=== PATIENT | male | born 1930 | race Caucasian/White ===

== ENCOUNTER 2016-05-14 15:35 | Emergency (ER) | payer MEDICARE, OTHER ==
--- NOTE | 2016-05-14 16:25 | ER Document Report ---
ED Medical Screen (RME) - General Chief Complaint: Dizziness Stated Complaint: SYNCOPE Mode of Arrival: Ambulatory Information source: Patient Notes: 86-year-old male presents to the emergency department complaining of increased dizziness over the last 2 days. Also reports has had multiple falls over the last 2 months striking his head on several of the falls. Denies chest pain or shortness of breath I have greeted and performed a rapid initial assessment of this patient. A comprehensive ED assessment and evaluation of the patient, analysis of test results and completion of the medical decision making process will be conducted by additional ED providers. TRAVEL OUTSIDE OF THE [place] IN LAST 30 DAYS: No - Related Data Allergies/Adverse Reactions: aspirin Allergy (Verified 05/14/16 16:15) Penicillins Allergy (Verified 05/14/16 16:15) Tetanus Vaccines and Toxoid [Tetanus Vaccines & Toxoid] Allergy (Verified 16:15) Past Medical History - Social History Chew tobacco use (# tins/day): No Frequency of alcohol use: None Drug Abuse: None Endocrine Medical History: Reports: Hx Diabetes Mellitus Type 2 Renal/ Medical History: Denies: Hx Peritoneal Dialysis Past Surgical History: Reports: Hx Orthopedic Surgery - multiple back - Immunizations Hx Diphtheria, Pertussis, Tetanus Vaccination: - pt unable to receive Physical Exam - Vital signs Vitals: Temp Pulse Resp BP Pulse Ox 98.1 F 68 16 130/53 H 100 05/14/16 16:11 05/14/16 16:11 05/14/16 16:11 05/14/16 16:11 05/14/16 16:11 - General General appearance: Alert In distress: None - Respiratory Respiratory status: No respiratory distress - Neurological Neuro grossly intact: Yes Cognition: Normal Orientation: AAOx4 Celina Coma Scale Eye Opening: Spontaneous Celina Coma Scale Verbal: Oriented Arturo Coma Scale Motor: Obeys Commands Arturo Coma Scale Total: 15 Course - Vital Signs Vital signs: Temp Pulse Resp BP Pulse Ox 98.1 F 68 16 130/53 H 100 05/14/16 16:11 05/14/16 16:11 05/14/16 16:11 05/14/16 16:11 05/14/16 16:11
[2016-05-14 17:49] LABS: ABSOLUTE EOSINOPHILS # (AUTO) 0.3 10^3/uL (0.0-0.6); ABSOLUTE LYMPHOCYTES (AUTO) 1.1 10^3/uL (0.5-4.7); ABSOLUTE MONOCYTES (AUTO) 0.7 10^3/uL (0.1-1.4); ABSOLUTE NEUT (AUTO) 4.8 10^3/uL (1.7-8.2); BASOPHILS % (AUTO) 0.4 % (0-2); EOSINOPHILS % (AUTO) 4.5 % (0-6); HEMATOCRIT 38.7 % (37.9-51.0); HEMOGLOBIN 13.1 g/dL (13.5-17.0); HGB HCT DIFFERENCE 0.6; LYMPHOCYTES % (AUTO) 15.9 % (13-45); MEAN CORPUSCULAR HEMOGLOBIN 31.4 pg (27.0-33.4); MEAN CORPUSCULAR HGB CONC 33.9 g/dL (32.0-36.0); MEAN CORPUSCULAR VOLUME 93 fl (80-97); MONOCYTES % (AUTO) 10.4 % (3-13); RED BLOOD COUNT 4.17 10^6/uL (4.35-5.55); RED CELL DISTRIBUTION WIDTH 13.8 % (11.5-14.0); SEGMENTED NEUTROPHILS % (AUTO) 68.8 % (42-78)
[2016-05-14 17:51] LABS: APPEARANCE,URINE CLEAR; BILIRUBIN,URINE NEGATIVE (NEGATIVE); GLUCOSE, URINE NEGATIVE (NEGATIVE); KETONES,URINE NEGATIVE (NEGATIVE); LEUKOCYTE ESTERASE,URINE NEGATIVE (NEGATIVE); NITRITE,URINE NEGATIVE (NEGATIVE); PROTEIN,URINE NEGATIVE (NEGATIVE); URINE SPECIFIC GRAVITY 1.015; UROBILINOGEN,URINE NEGATIVE mg/dL (<2.0)
--- NOTE | 2016-05-14 18:03 | EKG REPORT ---
SEVERITY:- ABNORMAL ECG - SINUS RHYTHM ATRIAL PREMATURE COMPLEX FIRST DEGREE AV BLOCK RIGHT BUNDLE BRANCH BLOCK : Confirmed by: Mau Zepeda 14-May-2016 18:01:48
[2016-05-14 18:18] LABS: ALANINE AMINOTRANSFERASE 30 U/L (21-72); ALBUMIN 3.8 g/dL (3.5-5.0); ALKALINE PHOSPHATASE 127 U/L (38-126); ANION GAP 7 (5-19); ASPARTATE AMINO TRANSFERASE 28 U/L (17-59); BILIRUBIN,TOTAL 0.4 mg/dL (0.2-1.3); BLOOD UREA NITROGEN 23 mg/dL (7-20); CALCIUM 9.8 mg/dL (8.4-10.2); CARBON DIOXIDE 29 mmol/L (22-30); CHLORIDE 101 mmol/L (98-107); CREATINE KINASE 91 U/L (55-170); CREATININE RESULT 0.94 mg/dL (0.52-1.25); GLUCOSE 116 mg/dL (75-110); POTASSIUM 5.1 mmol/L (3.6-5.0); SODIUM 137.2 mmol/L (137-145); TOTAL PROTEIN 6.9 g/dL (6.3-8.2)
[2016-05-14 18:30] LABS: CREATINE KINASE MB 1.29 ng/mL (<4.55)
[2016-05-14 18:33] LABS: TROPONIN I < 0.012 ng/mL
[2016-05-14] MEDS ORDERED: MECLIZINE HCL 25 MG TABLET PO ONE (20:28)
--- NOTE | 2016-05-14 20:28 | ER Document Report ---
[id number] Mode of Arrival: Ambulatory Information source: Patient Notes: 86-year-old male presents with complaints of intermittent dizzy spells over the past few weeks. Patient notes when he turns his head to the left he becomes dizzy room starts to spin and he feels that he is in a fall. Patient denies any headache, denies any neurological deficits. Denies any dizziness when he is at rest or when he doesn't move his head. He notes when he does move his head his eyes go back and forth TRAVEL OUTSIDE OF THE [place] IN LAST 30 DAYS: No - HPI Onset: Other Onset/Duration: Intermittent Quality of pain: No pain Severity: Mild Pain Level: Denies Associated symptoms: Other Exacerbated by: Denies Relieved by: Denies Similar symptoms previously: No Recently seen / treated by doctor: No - Related Data Allergies/Adverse Reactions: aspirin Allergy (Verified 05/14/16 16:15) Penicillins Allergy (Verified 05/14/16 16:15) Tetanus Vaccines and Toxoid [Tetanus Vaccines & Toxoid] Allergy (Verified 16:15) Past Medical History - General Information source: Patient - Social History Smoking Status: Never Smoker Cigarette use (# per day): No Chew tobacco use (# tins/day): No Smoking Education Provided: No Frequency of alcohol use: None Drug Abuse: None Family History: Reviewed & Not Pertinent Patient has suicidal ideation: No Patient has homicidal ideation: No Endocrine Medical History: Reports: Hx Diabetes Mellitus Type 2 Renal/ Medical History: Denies: Hx Peritoneal Dialysis Past Surgical History: Reports: Hx Orthopedic Surgery - multiple back - Immunizations Hx Diphtheria, Pertussis, Tetanus Vaccination: - pt unable to receive Review of Systems - Review of Systems Notes: REVIEW OF SYSTEMS: CONSTITUTIONAL : Denies fever, chills, or sweats. Denies recent illness. EENT: Denies eye, ear, throat, or mouth pain or symptoms. Denies nasal or sinus congestion or discharge. Denies throat, tongue, or mouth swelling or difficulty swallowing. CARDIOVASCULAR: Denies chest pain. Denies palpitations or racing or irregular heart beat. Denies ankle edema. RESPIRATORY: Denies cough, cold, or chest congestion. Denies shortness of breath, difficulty breathing, or wheezing. GASTROINTESTINAL: Denies abdominal pain or distention. Denies nausea, vomiting , or diarrhea. Denies blood in vomitus, stools, or per rectum. Denies black, tarry stools. Denies constipation. GENITOURINARY: Denies difficulty urinating, painful urination, burning, frequency, blood in urine, or discharge. MUSCULOSKELETAL: Denies back or neck pain or stiffness. Denies joint pain or swelling. SKIN: Denies rash, lesions or sores. HEMATOLOGIC : Denies easy bruising or bleeding. LYMPHATIC: Denies swollen, enlarged glands. NEUROLOGICAL: Admits to dizziness when he moves his head PSYCHIATRIC: Denies anxiety or stress. Denies depression, suicidal ideation, or homicidal ideation. ALL OTHER SYSTEMS REVIEWED AND NEGATIVE. Dictation was performed using [employer] voice recognition software PHYSICAL EXAMINATION: GENERAL: Well-appearing, well-nourished and in no acute distress. HEAD: Atraumatic, normocephalic. EYES: Pupils equal round and reactive to light, extraocular movements intact, sclera anicteric, conjunctiva are normal. ENT: Nares patent, oropharynx clear without exudates. Moist mucous membranes. NECK: Normal range of motion, supple without lymphadenopathy LUNGS: Breath sounds clear to auscultation bilaterally and equal. No wheezes rales or rhonchi. HEART: Regular rate and rhythm without murmurs ABDOMEN: Soft, nontender, nondistended abdomen. No guarding, no rebound. No masses appreciated. Musculoskeletal: Normal range of motion, no pitting or edema. No cyanosis. NEUROLOGICAL: Cranial nerves grossly intact. Normal speech, normal gait. Normal sensory, motor exams Ute-Hallpike positive to the left PSYCH: Normal mood, normal affect. SKIN: Warm, Dry, normal turgor, no rashes or lesions noted. Physical Exam - Vital signs Vitals: Temp Pulse Resp BP Pulse Ox 98.1 F 68 16 130/53 H 100 05/14/16 16:11 05/14/16 16:11 05/14/16 16:11 05/14/16 16:11 05/14/16 16:11 Course - Re-evaluation Re-evalutation: 05/15/16 00:23 I believe the patient's symptoms are secondary to benign positional vertigo, patient was given Antivert. CT of the head lab work otherwise note no acute abnormality. Patient was given neurology follow-up for further evaluation of his dizziness. Given that the symptoms worsened with movement and is associated with nystagmus I do believe the diagnosis to be accurate. Patient also requests GI follow-up for future use, he has been provided with dr seth Patient shifted not to drive until his dizziness has resolved After performing a Medical Screening Examination, I estimate there is LOW risk for INTRACRANIAL HEMORRHAGE, ISCHEMIC CVA, MALIGNANT DYSRHYTHMIA, ACUTE CORONARY SYNDROME, MENINGITIS, PULMONARY EMBOLISM, or SEPSIS thus I consider the discharge disposition reasonable. The patient and I have discussed the diagnosis and risks, and we agree with discharging home with close follow-up with the understanding that symptoms and presentations can change. We also discussed returning to the Emergency Department immediately if new or worsening symptoms occur. We have discussed the symptoms which are most concerning (e.g., changing or worsening pain, weakness, vomiting, fever) that necessitate immediate return. 05/15/16 00:23 - Vital Signs Vital signs: Temp Pulse Resp BP Pulse Ox 97.9 F 71 17 131/61 H 99 05/14/16 21:19 05/14/16 21:19 05/14/16 21:19 05/14/16 21:19 05/14/16 21:19 - Laboratory Result Diagrams: 05/14/16 17:21 05/14/16 17:21 Laboratory results interpreted by me: 05/14/16 05/14/16 17:21 17:21 RBC 4.17 L Hgb 13.1 L Potassium 5.1 H BUN 23 H Glucose 116 H Alkaline Phosphatase 127 H - Diagnostic Test Radiology reviewed: Image reviewed, Reports reviewed Discharge - Discharge Clinical Impression: BPV (benign positional vertigo) Qualifiers: Laterality: left Qualified Code(s): H81.12 - Benign paroxysmal vertigo, left ear Condition: Stable Disposition: HOME, SELF-CARE Instructions: Vertigo ([facility]) Prescriptions: Meclizine HCl [Antivert 25 mg Tablet] 25 mg PO TID PRN #21 tablet PRN Reason: Referrals: CHUY SETH MD [ACTIVE STAFF] - Follow up tomorrow SARA MAYO MD [ACTIVE STAFF] - Follow up tomorrow
[2016-05-14 21:23] VITALS: BP 131/61
== END 2016-05-14 20:45 | disposition home or self-care (01) ==
LOC: ER 15:35
DX: H81.12 Benign paroxysmal vertigo, left ear (principal); E11.9 Type 2 diabetes mellitus without complications; Z88.6 Allergy status to analgesic agent; Z88.0 Allergy status to penicillin; Z88.7 Allergy status to serum and vaccine
CPT/HCPCS: 36415; 70450; 80053; 81001; 82550; 82553; 84484; 85025; 93005; 93010; 99284